=== PATIENT | male | born 1965 | race Caucasian/White ===

== ENCOUNTER 2021-08-07 06:43 | Observation (INO) | payer BC ==
[~2021-08-07] VITALS: Ht 177.8 cm; Wt 80.7 kg
[~2021-08-07 06:43] MED LIST: ALLOPURINOL300 MG PO; INDOMETHACIN50 MG PO; SIMVASTATIN10 MG PO; TRICOR145 MG PO
[2021-08-07] MEDS ORDERED: DEXAMETHASONE SOD PHOS 10 MG/1 ML VIAL ONE (07:59)
[2021-08-07] MEDS ORDERED: SODIUM CHLORIDE 0.9% 50ML 100 ML ONE (07:59)
[2021-08-07] MEDS ORDERED: CELECOXIB 200 MG CAP ONE (07:59)
[2021-08-07] MEDS ORDERED: GABAPENTIN 300 MG CAP ONE (07:59)
[2021-08-07] MEDS ORDERED: ROPIVACAINE 246.25 MG, EPINEPHRINE HCL 1:1000 1ML 0.5 MG, CLONIDINE HCL 0.08 MG, KETORO... INJ ONE ×5 (08:00)
[2021-08-07] MEDS ORDERED: BUPIVACAINE 7.5MG/ML /DEXTROSE 82.5MG/ML 2 ML AMP INJ ONE (09:07)
[2021-08-07] MEDS ORDERED: SODIUM CHLORIDE 0.9% 500ML 500 ML ONE (09:19)
[2021-08-07] MEDS ORDERED: Vancomycin IV 1,000 MG ONE (09:19)
[2021-08-07] MEDS ORDERED: TRANEXAMIC ACID 1,000 MG/10 ML ML ONE (09:19)
[2021-08-07] MEDS ORDERED: SODIUM CHLORIDE 0.9% 1000ML 1,000 ML IV SCH (11:30)
[2021-08-07] MEDS ORDERED: HYDROCODONE/APAP 5MG-325MG TAB PO PRN (11:30)
[2021-08-07] MEDS ORDERED: DOCUSATE SODIUM 100 MG CAP PO PRN (11:30)
[2021-08-07] MEDS ORDERED: KETOROLAC TROMETHAMINE 30 MG/ML VIAL IV PRN (11:30)
[2021-08-07] MEDS ORDERED: ACETAMINOPHEN 650 MG SUPP PR PRN (11:30)
[2021-08-07] MEDS ORDERED: HYDROCODONE/APAP 7.5MG-325MG 1 EA TAB PO PRN (11:30)
[2021-08-07] MEDS ORDERED: DIPHENHYDRAMINE HCL INJ 50 MG/ML VIAL IV PRN (11:30)
[2021-08-07] MEDS ORDERED: ONDANSETRON HCL INJ 2MG/ML 2ML 2 MG/ML VIAL IV PRN (11:30)
[2021-08-07] MEDS ORDERED: HYDROMORPHONE 1MG/1ML INJ ONE (11:40)
[2021-08-07] MEDS ORDERED: ACETAMINOPHEN 1000 MG/100 ML IV PRN (13:00)
[2021-08-07 16:01] VITALS: BP 125/78
[2021-08-07] MEDS ORDERED: CELECOXIB 100 MG CAP PO SCH (17:00)
[2021-08-07] MEDS ORDERED: ASPIRIN 325 MG TAB PO SCH (17:00)
[2021-08-07] MEDS ORDERED: Cefazolin 1 GM in SODIUM CHLORIDE 0.9% 50ML 50 ML IV SCH (18:00)
[2021-08-07] MEDS ORDERED: ZOLPIDEM TARTRATE 5 MG TAB PO PRN (21:00)
== END 2021-08-07 18:51 | disposition home health service (06) ==
LOC: OR 06:43 → PACU V 12:16 → MED/SURG 12:19
PROVIDERS: ADMIT Specialist; ATTEND Specialist
DX: M87.351 Other secondary osteonecrosis, right femur (principal); E78.5 Hyperlipidemia, unspecified; Z82.49 Family history of ischemic heart disease and other diseases of the circulatory system; Z83.3 Family history of diabetes mellitus; Z72.89 Other problems related to lifestyle; E79.0 Hyperuricemia without signs of inflammatory arthritis and tophaceous disease; Z72.0 Tobacco use; M87.9 Osteonecrosis, unspecified; M10.9 Gout, unspecified; E78.00 Pure hypercholesterolemia, unspecified; M51.37 Other intervertebral disc degeneration, lumbosacral region; Z01.812 Encounter for preprocedural laboratory examination; Z20.822 Contact with and (suspected) exposure to COVID-19
CPT/HCPCS: 27130; 72170; 86850; 86900; 86920; 97110; 97116; 97161; 97530; G0378; J0171; J0690; J1100; J1170; J1885; J2795; J3370; J7030; J7040; U0002